=== PATIENT | female | born 1985 | race Caucasian/White ===

== ENCOUNTER 2018-06-02 15:37 | Inpatient (IN) ==
[2018-06-02] MEDS ORDERED: ZOFRAN IV PRN (15:54)
[2018-06-02] MEDS ORDERED: TYLENOL PO PRN (15:54)
[2018-06-02] MEDS ORDERED: DUONEB (A & A) INH PRN (16:00)
[2018-06-02] MEDS ORDERED: VANCOMYCIN IV PER PHARMACY MISC SCH (16:00)
[2018-06-02] MEDS: MAXIPIME 1 GM in NS 50 ML IV SCH (23:00)
[2018-06-02] MEDS: NORCO-7.5 PO PRN (23:01)
[2018-06-02] MEDS: NS 1,000 ML IV SCH (23:02)
[2018-06-02] MEDS: DUONEB (A & A) INH SCH (23:45)
[2018-06-03] MEDS: TESSALON PO PRN ×2 (00:55→22:00)
[2018-06-03] MEDS ORDERED: VANCOMYCIN 1 GM/NS 1 GM/250 ML IVPB IV ONE (01:00)
[2018-06-03 01:01] LABS: BASO# 0.02 X1000 (0.0-0.2); BASO% 0.2 % (0.0-0.8); EOS# 0.27 X1000 (0.0-0.7); EOS% 2.2 % (0.0-10.0); HEMATOCRIT 38.8 % (37.0-47.0); HEMOGLOBIN 13.2 g/dL (12.0-16.0); IMM GRAN# 0.03 X1000 (0.0-0.04); IMM GRAN% 0.2 % (0.0-0.5); LYMPH# 2.92 X1000 (1.2-3.4); LYMPH% 23.6 % (20.5-51.1); MCH 27.9 PG (27-31); MONO# 1.42 X1000 (0.11-0.59); MONO% 11.5 % (1.7-9.3); MPV 9.1 FL (7.4-10.4); NEUT% 62.3 % (42.2-75.2); PLT 398 X1000 (130-400); RBC 4.73 XMIL (4.2-5.4); RDW 13.3 % (11.5-14.5); WBC 12.36 X1000 (4.8-10.8)
[2018-06-03 01:44] LABS: AGAP 13; ALB/GLOB RATIO 1.1; ALBUMIN 4.6 g/dL (3.5-5.0); ALKALINE PHOSPHATASE 110 U/L (32-104); BUN 13 mg/dL (8-22); CALCIUM 9.7 mg/dL (8.8-10.2); CHLORIDE 101 mmol/L (98-107); COSMO 277; CREATININE 0.8 mg/dL (0.5-0.9); ESTIMATED GFR > 60; GLUCOSE 87 mg/dL (70-104); GOT 16 U/L (10-30); GPT 11 U/L (10-36); POTASSIUM 3.4 mmol/L (3.5-5.1); SODIUM 139 mmol/L (136-145); TCO2 25 mmol/L (25-35); TOTAL BILIRUBIN 0.28 mg/dL (0.20-1.00); TOTAL PROTEIN 8.8 g/dL (6.3-8.3)
[2018-06-03] MEDS ORDERED: VANCOMYCIN 800 MG in NS 250 ML IV ONE (03:00)
[2018-06-03] MEDS: DUONEB (A & A) INH SCH ×7 (03:48→22:30)
--- NOTE | 2018-06-03 07:54 | EKG Report ---
Test Performed on : 06/02/2018 11:19:37 PM Test Reason : PNA Blood Pressure : / mmHG Vent. Rate : 084 BPM Atrial Rate : 084 BPM P-R Int : 144 ms QRS Dur : 082 ms QT Int : 372 ms P-R-T Axes : 059 024 043 degrees QTc Int : 439 ms Normal sinus rhythm. with sinus arrhythmia. Normal ECG No previous ECGs available Confirmed by Junior FLORENTINO, Khanh Worley ([id number]) on 06/03/2018 8:46:48 AM
[2018-06-03 08:19] LABS: BASO# 0.01 X1000 (0.0-0.2); BASO% 0.1 % (0.0-0.8); EOS# 0.21 X1000 (0.0-0.7); EOS% 2.9 % (0.0-10.0); HEMATOCRIT 32.5 % (37.0-47.0); HEMOGLOBIN 10.9 g/dL (12.0-16.0); LYMPH# 1.84 X1000 (1.2-3.4); LYMPH% 25.6 % (20.5-51.1); MCH 27.7 PG (27-31); MCHC 33.5 g/dL (33-37); MCV 82.5 FL (81-99); MONO# 1.02 X1000 (0.11-0.59); MONO% 14.2 % (1.7-9.3); MPV 9.3 FL (7.4-10.4); NEUT# 4.11 X1000 (1.4-6.5); NEUT% 57.2 % (42.2-75.2); PLT 280 X1000 (130-400); RBC 3.94 XMIL (4.2-5.4); RDW 13.2 % (11.5-14.5); WBC 7.19 X1000 (4.8-10.8)
[2018-06-03] MEDS: PRILOSEC PO SCH (08:33)
[2018-06-03 08:34] LABS: AGAP 7; ALB/GLOB RATIO 1.1; ALBUMIN 3.3 g/dL (3.5-5.0); ALKALINE PHOSPHATASE 83 U/L (32-104); BUN 10 mg/dL (8-22); CALCIUM 8.5 mg/dL (8.8-10.2); CHLORIDE 108 mmol/L (98-107); COSMO 276; CREATININE 0.6 mg/dL (0.5-0.9); ESTIMATED GFR > 60; GLUCOSE 89 mg/dL (70-104); GOT 10 U/L (10-30); GPT 8 U/L (10-36); POTASSIUM 3.7 mmol/L (3.5-5.1); SODIUM 139 mmol/L (136-145); TCO2 24 mmol/L (25-35); TOTAL BILIRUBIN 0.21 mg/dL (0.20-1.00); TOTAL PROTEIN 6.4 g/dL (6.3-8.3)
--- NOTE | 2018-06-03 09:26 | Diag Imaging Result Doc PS360 ---
EXAM: CT THORAX W/CONTRAST INDICATION: Pulmonary Opacities per CT Abd/Pelvis,Fever,Cough TECHNIQUE: This exam was performed using automated exposure control, adjustment of mA or kV according to patient size, and/or use of iterative reconstruction technique. COMPARISON: CT of the abdomen and pelvis dated 06/02/2018. No prior dedicated CT chest is available for comparison. FINDINGS: There is a calcified granuloma in the superior aspect of the right lower lobe. The small airspace consolidation involving the left lower lobe that was seen on the previous recent abdominal CT is stable. There is a smaller slightly nodular ill-defined opacity in the right lower lobe near the base measuring up to 1.1 cm that is also stable. These are most compatible with a basilar pneumonia. No other airspace consolidations are identified. There is no pleural fluid collection and no pneumothorax. There are calcified right hilar lymph nodes indicating prior granulomatous disease. There are small shotty mediastinal lymph nodes and right hilar lymph nodes that are nonspecific. No discrete pulmonary artery filling defects are identified. There is no cardiomegaly. Limited views of the upper abdomen are unremarkable. IMPRESSION: Bibasilar opacities, more extensive on the left and most likely due to an infectious process, are stable. No other consolidations involving the remainder of the lungs are identified. Electronically signed by Froylan Perez 06/03/2018 9:24 AM
--- NOTE | 2018-06-03 10:29 | HISTORY AND PHYSICAL ---
INFECTIOUS DISEASE DOCTOR: DR. Freddy Hart DATE AND TIME: 06/02/2018 at 2330. CHIEF COMPLAINT: Productive cough, fever and chills. HISTORY OF PRESENT ILLNESS: Ms. Alonzo is a 32-year-old female who has no significant past medical history except for some chronic pain secondary to a pinched nerve in her back. She was admitted in late March 2018 and was diagnosed with a right pyelonephritis. Since that she time she has received 6 weeks of treatment with DR. Hart, receiving antibiotics of Levaquin. The patient states that she has been off the Levaquin antibiotic for approximately 2 weeks. She did follow up to have a routine CT abdomen and pelvis for reevaluation of her pyelonephritis. She did get a CT abdomen and pelvis with IV contrast performed this a.m. and the radiologist did note that there were some pulmonary opacities bilaterally which were not previously present, and that the possibility of pneumonia or even septic emboli should be considered. The patient is also reporting that she has been having fever, body aches and chills as well as a productive cough with green sputum for approximately 1 week. Other than this, she denies any headache , dizziness, chest pain, shortness of breath, abdominal pain, nausea, vomiting or diarrhea. She denies any dysuria or urinary frequency. She denies any pain in her extremities or swelling in her extremities. She does report that she has some mid upper chronic back pain, although this has not changed or worsened. She denies being around anyone recently with the flu or any of her children having the flu. The patient has also been complaining of a sore throat as well. DR. Hart did contact the hospitalist service for direct admission. Patient has been placed on the medical floor with telemetry. At this time the only lab results that we have available are a CBC in which her white blood cell count is slightly elevated at 12.36. Hemoglobin is 13.2, hematocrit 38.8. We will order blood culture and sputum culture and do plan to do a CT of the chest in the morning for further evaluation. REVIEW OF SYSTEMS: A 14-point review of systems was conducted with the patient and all were negative except for pertinent positives mentioned in the above HPI. PAST MEDICAL HISTORY: 1. Chronic pain secondary to a pinched nerve in her mid upper back. 2. Status post 6 weeks of treatment for pyelonephritis with Levaquin, followed by DR. Hart. 3. Herpes radialis. PAST SURGICAL HISTORY: 1. x3. 2. Tonsillectomy. 3. Cholecystectomy. 4. Bilateral ear surgery. SOCIAL HISTORY: The patient denies any tobacco, alcohol or illicit drug use. She does have 5 children who are alive and well and range in ages from 13 to 4. FAMILY HISTORY: Notable for diabetes, coronary artery disease and breast cancer. ALLERGIES: The patient has allergies to Zithromax and tramadol. HOME MEDICATIONS: The patient on her previous admission did take [place] 2 mg q.6 hours p.r.n. for pain as well as gabapentin 300 mg p.o. t.i.d. At this time her home medications for this admission have not been reconciled. Once they have done so, we will readjust her home medication list. DIAGNOSTIC DATA: White blood cell count is 12.36, hemoglobin 13.2, hematocrit 38.8, platelet count is 398,000. A CT abdomen and pelvis with IV contrast performed on 06/02/2018 did show in comparison to the previous study on 05/05/2018 that there were some patchy opacities in the left lower lobe and a nodular opacity in the posterior costophrenic sulcus at the right lower lobe which was not previously present. Possibility of pneumonia or septic emboli should be considered. As far as following up on the patient's pyelonephritis, they kidneys were noted to be without evidence of hydronephrosis or mass. At this time we are still awaiting several pending diagnostic studies which include CMP, magnesium, influenza screen, blood culture, sputum culture, strep and throat cultures as well as a CT thorax with contrast in the morning. We are also awaiting an EKG as well as an echocardiogram that are to be performed in the morning. PHYSICAL EXAMINATION: VITAL SIGNS: Temperature 98.6, heart rate 100, respirations 18, blood pressure 119/62 with a MAP of 58. Oxygen saturation is 97% on room air. GENERAL: Ms. Alonzo is a pleasant 32-year-old female. She was actually up moving around in the room without any distress. She was unpacking her overnight bag. She was awake, alert and able to answer all questions appropriately. HEENT: Head is atraumatic and normocephalic. Pupils are equal, round and reactive to light, are 3 mm bilaterally and brisk. Oral mucosa is moist. Her posterior pharynx does have some erythema as well as some drainage noted. Patient does also appear to have a possible ulcer noted to her left posterior tongue. NECK: Supple. Trachea midline. CARDIOVASCULAR: The patient has normal S1 and S2. No murmurs, gallops or rubs appreciated with regular rate and rhythm. PULMONARY: The patient has symmetrical chest expansion bilaterally, Lung sounds are clear to auscultation in bilateral upper moore, although she does have diminished lung sounds in bilateral bases. ABDOMEN: Soft, nontender, nondistended. Bowel sounds are present in all 4 quadrants. EXTREMITIES: No cyanosis, clubbing or edema noted. Pulse, motor and sensory are intact in all extremities. Pedal pulses and radial pulses are 2+ bilaterally. Capillary refill is less than 3. INTEGUMENTARY: The patient's skin is pink, warm and dry. NEUROLOGICAL: The patient is alert and oriented to person, place, time and situation. There were no focal neurological deficits noted. ASSESSMENT AND PLAN: 1. Pulmonary opacities. These were an incidental finding on a follow-up CT abdomen and pelvis that the patient was having performed for previously diagnosed pyelonephritis. The radiologist did note that she had pulmonary opacities bilaterally and the possibility of pneumonia and/or septic emboli could not be excluded. The patient has also been reporting fever, body aches and chills as well as productive cough with green sputum and a sore throat x1 week. For further evaluation of this we have ordered blood cultures, sputum culture, throat culture rapid strep and and influenza screen. We have placed her with antibiotic coverage with vancomycin and cefepime. Will do DuoNeb treatments q.4 hours, incentive spirometry. Encourage fluid intake, cough and deep breathing. We have ordered for her to have a CT thorax with contrast in the morning. We are having to wait until 8 o'clock in the morning because she had recent contrast within the last 24 hours. We have placed a consult with DR. Hart and will await his evaluation and further recommendations for management. Given that there is a possibility of septic emboli, we have ordered an echocardiogram as well. 2. Status post 6 weeks of treatment for pyelonephritis with Levaquin followed by DR. Hart. According to the most recent CT of the pelvis exam, the radiologist did not note any acute abnormalities. He put that the kidneys were without evidence of hydronephrosis or mass. The patient is not reporting any abdominal pain, flank pain or urinary symptoms. She is reporting some back pain in her mid upper back, although she reports this is her usual chronic back pain, and it is not new onset and has not worsened. 3. Chronic pain secondary to pinched nerve in her mid upper back. Will continue her regularly prescribed pain medicine. 4. Deep vein thrombosis prophylaxis will be provided with sequential compression devices. The patient has been placed on a medical floor with telemetry. She will have vital signs q.4 hours, strict intake and output. We are awaiting several diagnostic studies to be resulted at this time. We will continue to follow. Further orders and recommendations pending hospital course, diagnostic studies and physician evaluations. Dictated by VONDA Buckley for Thee Davis MD cc: Thee Davis MD MTDD
[2018-06-03] MEDS: MAXIPIME 1 GM in NS 50 ML IV SCH (12:14)
[2018-06-03] MEDS: NS 1,000 ML IV SCH (12:22)
--- NOTE | 2018-06-03 16:38 | PROGRESS NOTE ---
DATE: 06/03/2018 INTERVAL HISTORY: Ms. Alonzo was admitted overnight because of outpatient CAT scan suggestive of septic pulmonary emboli and for the need for intravenous antibiotics. She also had subjective fevers, chills, and weakness. SUBJECTIVE: Patient's mother is at bedside. Currently, patient is feeling better. She wanted to go home. I discussed with her that considering her condition I would recommend she be treated with intravenous antibiotics and she is in agreement with that. The patient denies any chest pain. She denies feeling short of breath. She is complaining off of soreness in her throat and odynophagia. She said her children were sick a week prior and since then she has acquired common cold and cough. Her flu screen was negative. I discussed with her about the physical examination findings and answered all of her questions. OBJECTIVE: Vital signs: Currently temperature 98 degrees, pulse 87, respiratory rate 18, blood pressure 93/52, saturating 98% on room air. General: Does not appear in any acute distress. HEENT: Oral cavity has mild tonsillar and soft palate inflammation suggestive of tonsillitis, postnasal drip. She also has a rhinitis. No cervical lymphadenopathy. Cardiovascular: S1, S2 normal. No murmur or gallop. Respiratory: Air entry bilaterally equal. No wheeze, rhonchi, crackles. Abdomen: Soft, nontender. No hepatosplenomegaly. Active bowel sounds. Extremities: No lower extremity edema. LABS: Suggestive of resolution of leukocytosis, normocytic anemia, normal platelet count, resolution of hypokalemia, hyperchloremia, and low bicarbonate. Normal kidney function. MICROBIOLOGY: Influenza screen was negative. Group A strep rapid antigen was negative. Blood cultures are in lab. Sputum culture is still in lab. Final results pending. IMAGING: Chest CT performed today morning suggestive of bibasilar opacities, more extensive on the left most likely due to infectious process. No consolidation in the remainder of the lungs. Echocardiogram is performed, results are pending. ASSESSMENT AND PLAN: 1. Sepsis due to bilateral patchy pneumonia, likely atypical. This could be viral pneumonia or could be pneumonia related to atypical organisms considering her symptoms and CT finding. Also on differential count she has monocytosis. Continue intravenous vancomycin, intravenous cefepime as per ID recommendation. Stop intravenous fluids as patient has been able to take by mouth. I will appreciate ID recommendation about need for atypical coverage. Follow up echocardiogram to rule out cardiac valve vegetations as the CT scan looks to have septic emboli, urine strep and urine legionella antigens. 2. History of acute pyelonephritis in March 2018 status post 6 weeks of levofloxacin. I will follow up with urinalysis to see if she has a lower urinary tract infection. Though she complained of some occasional lower back pain, this could be related to her chronic back pain. However, considering suspected septic emboli, I decided to get the urinalysis to find a possible source. 3. Acute pharyngitis and acute laryngitis. Could be viral in etiology. Flu screen and rapid strep antigen have been negative. I will treat it symptomatically with levocetirizine, ibuprofen, and Cepacol lozenges. 4. Chronic pain secondary to pinched nerve in mid upper back. Continue her home medications of [place]. I will start gabapentin in the future. 5. Deep vein thrombosis prophylaxis. SCDs. 6. Disposition. Patient remains inside the hospital for need for IV antibiotics pending further culture and sensitivity data. Plan of care was discussed with her and her mother at bedside. All of their questions have been answered. cc: Dre Nguyen MD MTDJulia
[2018-06-03 17:12] LABS: URINE SOURCE CLEAN CATCH
[2018-06-03 17:18] LABS: BILIRUBIN URINE NEGATIVE (NEGATIVE); BLOOD URINE NEGATIVE (NEGATIVE); COLOR STRAW; GLUCOSE URINE NEGATIVE (NEGATIVE); KETONE URINE NEGATIVE (NEGATIVE); LEUKOCYTES URINE NEGATIVE (NEGATIVE); NITRITE URINE NEGATIVE (NEGATIVE); PROTEIN URINE NEGATIVE (NEGATIVE); SP GRAVITY URINE 1.028; TURBIDITY URINE CLEAR (CLEAR); UROBILINOGEN URINE NORMAL (NORMAL)
[2018-06-03 17:22] LABS: UR EPITHELIAL CELLS <10 /HPF (<10); URINE BACTERIA NEGATIVE /HPF; URINE RBC <10 /HPF (<10); URINE WBC <10 /HPF (<10)
[2018-06-03] MEDS: MOTRIN PO SCH (18:04)
[2018-06-03] MEDS: MYCOSTATIN SUSP PO SCH ×2 (18:04→21:59)
[2018-06-03] MEDS: MAXIPIME 2 GM in NS 100 ML IV SCH (18:04)
--- NOTE | 2018-06-03 18:48 | INFECTIOUS DISEASE PROGRESS NO ---
DATE: 06/03/2018 PRESENT ILLNESS: Ms. Alonzo has been treated for a right-sided pyelonephritis with E coli, using Levaquin for a total of 6 weeks. She is admitted to the hospital due to a followup CT scan of her abdomen and pelvis which showed possible pneumonia or septic emboli. The patient was also having fevers, chills and green sputum at home. There is a pharyngitis with erythema and swelling noted to the bilateral tonsils. She also has an oral and possibly esophageal candidiasis. MEDICATIONS: We requested that she be started on vancomycin and cefepime. We have increased the cefepime to 2 g IV every 8 hours at this point. PHYSICAL EXAMINATION: Vital Signs: Temperature is 98, pulse rate 87, respiratory rate 18, blood pressure 93/52. O2 sat is 91% on room air. General: This is an acutely ill appearing female. She is sitting up in the bed currently in no acute distress. HEENT: Atraumatic , normocephalic. Oral mucous membranes are pink and moist. She does have some yellow exudate to the back of her tongue, as well as inflammation and erythema to the tonsils bilaterally. Conjunctivae are pink. Neck: Supple. Trachea is midline. Lungs: She does have some scattered rhonchi. Lung sounds are diminished bilaterally. She has a cough with occasional sputum. Cardiovascular: Heart rate and rhythm are regular. Normal sinus rhythm on the monitor. Pedal and radial pulses are palpable bilaterally. Abdomen: Soft, round and nontender. Bowel sounds are active. Neurologic: She is awake, alert and oriented. Able to ambulate without assistance. LABORATORY AND X-RAY: On admission, her white count was 12.36, today it is 7.19 ; hemoglobin 10.9; platelet count 280,000. Creatinine is 0.6. Estimated GFR is greater than 60. Total bilirubin 0.21, AST 10, ALT 8, alkaline phosphatase 83. Her flu swab was negative. Throat culture is pending. A group A strep rapid antigen was negative. Blood cultures are preliminary and sputum culture has shown Gram-positive cocci on the Gram stain. Yesterday, an abdomen and pelvis CT showed pulmonary opacities bilaterally and the possibility of pneumonia or septic emboli. Compared to the previous CT of the abdomen and pelvis done at the end of March there is no pyelonephritis, renal abscesses or hydronephrosis. CT scan of the chest done today showed calcified granuloma to the right lower lobe, nodular ill-defined opacity in the right lower lobe most likely indicative of basilar pneumonia, calcified right hilar lymph nodes indicating prior granulomatous disease. ASSESSMENT AND PLAN: Ms. Alonzo has completed treatment for her pyelonephritis and that situation seems to have resolved based on her CT scan done yesterday of the abdomen and pelvis. The patient was admitted last evening due to the possibility of pneumonia and/or septic emboli in the lower lobes, which was noted on that CT scan. Today she has had a CT scan of her chest with mention of some granulomas, as well as basilar pneumonia. The patient is not a smoker and states she never has been; however, she does have some secondhand smoke exposure. There also may be some abuse of pain medications at times. Right now, we will go ahead and order immunoglobulins as well as histoplasma antigen and antibody. We will also get a QuantiFERON. She is receiving vancomycin and cefepime, which we will continue. However, the dose of cefepime has increased to give her 2 g IV every 8 hours to cover for the possibility of Pseudomonas. We are awaiting the results of her blood and sputum cultures, and hopefully then we will be able to send her home with something by mouth. She is complaining of sore throat and burning in her tongue, so we will go ahead and give her Nystatin swish and swallow 4 times a day. These plans have been discussed with and recommended by Dr. Hart. COMORBIDITIES: For Ms. Alonzo include chronic pain with possible pain medication abuse and recent pyelonephritis. Dictated by VONDA Fox for Freddy Hart MD This chart was documented by, VONDA Fox and accurately reflects the services performed, treatment plan and medical decisions as attested by the providers signature Freddy Hart MD. cc: MD FERMÍN Watkins
[2018-06-03] MEDS: NORCO-7.5 PO PRN (21:59)
[2018-06-03] MEDS: VANCOMYCIN 1,400 MG in NS 250 ML IV SCH (22:23)
[2018-06-03] MEDS: CEPACOL SORE THROAT LOZENGE MT PRN (22:23)
[2018-06-04] MEDS: MOTRIN PO SCH ×4 (01:33→22:31)
[2018-06-04] MEDS: MAXIPIME 2 GM in NS 100 ML IV SCH ×3 (01:35→18:10)
[2018-06-04] MEDS: DUONEB (A & A) INH SCH ×6 (03:30→23:51)
[2018-06-04 07:10] LABS: BASO# 0.02 X1000 (0.0-0.2); BASO% 0.3 % (0.0-0.8); EOS# 0.09 X1000 (0.0-0.7); EOS% 1.4 % (0.0-10.0); HEMATOCRIT 34.9 % (37.0-47.0); HEMOGLOBIN 11.7 g/dL (12.0-16.0); IMM GRAN# 0.03 X1000 (0.0-0.04); IMM GRAN% 0.5 % (0.0-0.5); LYMPH# 1.37 X1000 (1.2-3.4); LYMPH% 20.9 % (20.5-51.1); MCH 27.6 PG (27-31); MCHC 33.5 g/dL (33-37); MCV 82.3 FL (81-99); MONO# 0.43 X1000 (0.11-0.59); MONO% 6.6 % (1.7-9.3); MPV 9.3 FL (7.4-10.4); NEUT# 4.62 X1000 (1.4-6.5); NEUT% 70.3 % (42.2-75.2); PLT 316 X1000 (130-400); RBC 4.24 XMIL (4.2-5.4); RDW 13.6 % (11.5-14.5); WBC 6.56 X1000 (4.8-10.8)
[2018-06-04 07:26] LABS: AGAP 10; BUN 6 mg/dL (8-22); CHLORIDE 112 mmol/L (98-107); COSMO 283; CREATININE 0.6 mg/dL (0.5-0.9); ESTIMATED GFR > 60; GLUCOSE 114 mg/dL (70-104); POTASSIUM 3.5 mmol/L (3.5-5.1); SODIUM 143 mmol/L (136-145); TCO2 21 mmol/L (25-35)
[2018-06-04] MEDS: MYCOSTATIN SUSP PO SCH ×4 (08:27→20:39)
[2018-06-04] MEDS: PRILOSEC PO SCH (08:27)
--- NOTE | 2018-06-04 09:46 | ECHO REPORT ---
ORDER DATE: 06/03/2018 MEASUREMENTS: Left ventricular end-diastolic 4.4, end-systolic diameter 2.3, septal thickness 0.7, aortic root 2.9, left atrium 4.1. SUMMARY: 1. Adequate quality study. 2. Aortic valve is without evidence of structural abnormality and opens adequately on 2- dimensional images. Peak gradient across the aortic valve is less than 10 mmHg. Mitral, tricuspid, and pulmonic valves are without evidence of structural abnormality. There is mild tricuspid regurgitation. The estimated systolic PA pressure by Doppler is 25 mmHg. The aortic root is normal in size. 3. Normal left ventricular chamber size and wall thickness demonstrated. Estimated left ventricular ejection fraction appears to be at least 65%. No regional wall motion abnormalities are evident. Left atrium is borderline enlarged. The right atrium and right ventricle are normal in size with grossly preserved right ventricular systolic function. 4. No pericardial effusion. 5. Appearance of inferior vena cava suggests normal central venous pressure. cc: Giorgi Gray MD
[2018-06-04] MEDS: VANCOMYCIN 1,400 MG in NS 250 ML IV SCH (15:59)
--- NOTE | 2018-06-04 16:57 | INFECTIOUS DISEASE PROGRESS NO ---
DATE: 06/04/2018 PRESENT ILLNESS: Ms. Alonzo is being treated for a gram-negative sarai pneumonia. She also has pharyngitis and oral and esophageal candidiasis. MEDICATIONS: She is receiving cefepime 2 g IV every 8 hours and vancomycin IV per Pharmacy dosing, as well as nystatin swish and swallow 4 times a day. PHYSICAL EXAMINATION: Vital Signs: Temperature is 99.2 degrees, pulse rate 89 , respiratory rate 20, blood pressure 104/62, O2 saturation is 99% on room air. General: This is an acutely ill- appearing young female. She is sitting up in bed, currently in no acute distress. HEENT: Atraumatic, normocephalic. Oral mucous membranes are pink and moist. There is some yellow exudate to the back of her tongue. She does have some complaints of burning to her tongue and pharyngitis. Conjunctivae are pink. Neck: Supple. Trachea is midline. Respiratory: Lung sounds are clear in the upper lobes. Diminished in the bases. Cardiovascular: Heart rate is regular. Radial and pedal pulses are +2 bilaterally. Abdomen: Soft, round, and nontender. Bowel sounds are active. Neurologic: She is awake, alert, oriented, and able to ambulate without assistance. DIAGNOSTIC STUDIES: Today her white count is 6.56, hemoglobin 11.7, platelet count 316,000. Creatinine is 0.6, estimated GFR is greater than 60. There is a gram-negative sarai growing in her sputum. Blood cultures are pending. No imaging reports today. Immunoglobulins show an IgA of 297, IgG 941. Her urine Legionella antigen was negative, and the urine Streptococcus pneumoniae antigen was also negative. ASSESSMENT AND PLAN: Ms. Alonzo is being treated for a gram-negative sarai pneumonia. She is feeling a lot better today. She does continue to have a low-grade temperature, although her leukocytosis has resolved. We are still waiting for some of her blood work to come back, as well as the final cultures on her blood and sputum. At this point, we will discontinue her vancomycin and continue cefepime as ordered for her pneumonia, and nystatin swish and swallow for her oral candidiasis. We will also get a chest x-ray in the morning, and hopefully she can be sent home tomorrow depending on the culture results. These plans have been discussed with and recommended by Dr. Hart. COMORBIDITIES: For Ms. [place] include chronic pain with possible pain medication abuse and recent pyelonephritis. Dictated by VONDA Fox for Freddy Hart MD This chart was documented by, VONDA Fox and accurately reflects the services performed, treatment plan and medical decisions as attested by the providers signature Freddy Hart MD. cc: Freddy Hart MD [facility]
[2018-06-04] MEDS: CEPACOL SORE THROAT LOZENGE MT PRN (20:37)
[2018-06-04] MEDS: TESSALON PO PRN (20:39)
[2018-06-04] MEDS: NORCO-7.5 PO PRN (20:40)
--- NOTE | 2018-06-04 21:57 | PROGRESS NOTE ---
DATE: 06/04/2018 INTERVAL HISTORY: Patient's sputum was growing gram-negative rods, final speciation is pending. Her vancomycin is stopped. SUBJECTIVE: Patient is feeling fine. Denies chest pain. Her cough is getting better. She thinks that is because of postnasal drip. She denies any shortness of breath. I discussed with her about antibiotic plan. I answered all of her questions. VITAL SIGNS: Currently, vitals: Temperature of 99.2, pulse 89, respirations 20 , blood pressure 104/62. Satting 99% on room air. PHYSICAL EXAMINATION: General: Does not appear in any acute distress. HEENT : Oral cavity has erythema affecting the soft palate, tonsil and posterior pharyngeal wall; however, tonsillar enlargement has significantly decreased. There is a postnasal drip. No cervical lymphadenopathy. She has rhinitis with boggy and inflamed nasal turbinate. Cardiovascular: S1, S2 normal. No murmur, rub or gallop. Respiratory: Air entry bilaterally equal. No wheezes, no crackles. Abdomen: Soft, nontender. No hepatosplenomegaly. Active bowel sounds. Extremities: No lower extremity edema. LABS: Suggestive of resolution of leukocytosis, stable hemoglobin, hematocrit and platelet count. Chloride of 112, bicarbonate 21. There is normal kidney function. Sputum culture is growing gram- negative rods. Blood culture has been negative. ASSESSMENT AND PLAN: 1. Sepsis due to bilateral patchy pneumonia due to gram-negative rods. Follow up final sputum culture and blood culture results. Continue intravenous cefepime as per ID recommendation. Echocardiogram performed did not detect any valvular vegetation with normal ejection fraction. Her urine strep and Legionella antigen have been negative. 2. History of acute pyelonephritis in March 2018, status post 6 weeks of levofloxacin with repeat urinalysis without any infection. 3. Acute pharyngitis and acute laryngitis, likely viral in etiology. Flu screen and rapid streptococcal antigen have been negative. Treat symptomatically with ibuprofen and Cepacol lozenges. Infectious Disease Team has also started her on nystatin suspension for suspected oral esophageal candidiasis. 4. Chronic pain secondary to pinched nerve in middle of back. Continue her home medications of [place]. 5. DVT prophylaxis with SCDs. 6. Disposition: Awaiting final sputum culture results which would guide antibiotic therapy. She is otherwise stable. If we have the sputum culture results tomorrow, after discussion with ID, we can think about discharging her home on p.o. antibiotics. Plan of care was discussed with her. All of her questions were answered. cc: Dre Nguyen MD MTDD
[2018-06-05] MEDS: MAXIPIME 2 GM in NS 100 ML IV SCH ×5 (01:58→18:07)
[2018-06-05] MEDS: DUONEB (A & A) INH SCH ×5 (05:36→15:51)
[2018-06-05 08:13] LABS: BASO# 0.02 X1000 (0.0-0.2); BASO% 0.4 % (0.0-0.8); EOS# 0.09 X1000 (0.0-0.7); EOS% 1.7 % (0.0-10.0); HEMATOCRIT 36.1 % (37.0-47.0); HEMOGLOBIN 12.1 g/dL (12.0-16.0); IMM GRAN# 0.04 X1000 (0.0-0.04); IMM GRAN% 0.8 % (0.0-0.5); LYMPH# 1.53 X1000 (1.2-3.4); LYMPH% 28.9 % (20.5-51.1); MCH 27.8 PG (27-31); MCHC 33.5 g/dL (33-37); MCV 82.8 FL (81-99); MONO# 0.41 X1000 (0.11-0.59); MONO% 7.7 % (1.7-9.3); MPV 9.3 FL (7.4-10.4); NEUT# 3.21 X1000 (1.4-6.5); NEUT% 60.5 % (42.2-75.2); PLT 351 X1000 (130-400); RBC 4.36 XMIL (4.2-5.4); RDW 13.9 % (11.5-14.5)
[2018-06-05 08:34] LABS: AGAP 13; BUN 9 mg/dL (8-22); CALCIUM 9.3 mg/dL (8.8-10.2); CHLORIDE 109 mmol/L (98-107); COSMO 284; CREATININE 0.7 mg/dL (0.5-0.9); ESTIMATED GFR > 60; GLUCOSE 107 mg/dL (70-104); POTASSIUM 3.7 mmol/L (3.5-5.1); SODIUM 143 mmol/L (136-145); TCO2 21 mmol/L (25-35)
--- NOTE | 2018-06-05 09:46 | Diag Imaging Result Doc PS360 ---
EXAM: CHEST-2 VIEWS 06/05/2018 HISTORY: pneumonia TECHNIQUE: PA and lateral chest COMMENT: There is no evidence of acute cardiac or pulmonary disease. Compared to the previous study of 04/04/2018 there has been no significant change in the appearance the chest considering differences in inspiration. IMPRESSION: No evidence of acute disease. Electronically signed by Kit Santana 06/05/2018 9:44 AM
[2018-06-05] MEDS: MOTRIN PO SCH ×2 (09:47→16:20)
[2018-06-05] MEDS: PRILOSEC PO SCH (09:48)
[2018-06-05] MEDS: MYCOSTATIN SUSP PO SCH ×5 (09:48→16:19)
[2018-06-05 13:24] VITALS: BP 120/63
--- NOTE | 2018-06-06 08:19 | DISCHARGE SUMMARY ---
ADMISSION DATE: 06/02/2018 DISCHARGE DATE: 06/05/2018 DISCHARGE DIAGNOSES: 1. Sepsis due to pneumonia due to gram-negative rods. 2. History of acute pyelonephritis in March 2018, status post 6 weeks of levofloxacin with repeat urinalysis without any infection. 3. Acute pharyngitis and acute laryngitis. 4. Chronic pain secondary to a pinched nerve in the middle of the back. HOSPITAL COURSE: A 32-year-old, female with a past medical history of chronic pain secondary to pinched nerve in her back, admitted in March 2018 due to right pyelonephritis, and she receive 6 weeks of treatment with antibiotics, where she receive Levaquin. As per the patient, she was off Levaquin for about 2 weeks. She did follow up with a repeat CT abdomen and pelvis for re-evaluation of her pyelonephritis. The day of admission on 06/02/2018 and the radiologist noted that there were some pulmonary opacities bilaterally which were not previously present, suspicious for pneumonia or even septic emboli should be considered. As per the patient, she has been having also fever, body aches and chills and productive cough with green sputum for about 1 week. She was admitted on 06/02/2018. She denies any headache, dizziness, chest pain, shortness of breath, abdominal pain, nausea, vomiting or diarrhea. No dysuria or frequency. Dr. Hart did contact the Hospitalist Service for direct admission. She was placed on the medical floor with telemetry. Sputum culture showed gram-negative rods, and she was placed on cefepime. The patient was improving on a daily basis. Echocardiogram was basically normal, x-ray today with no evidence of acute disease, so we have decided to discharge this patient with strict followup by his primary care doctor and Dr. Hart as needed. At the moment of discharge, the patient was in a stable medical condition, tolerating p.o. and ambulating. No chest pain. No shortness of breath. No cough. PHYSICAL EXAMINATION: Vital signs: Temperature 98.6 degrees, pulse 67, respiratory rate 18, blood pressure 120/63, oxygen saturation 100% on room air. HEENT: Head normocephalic. No trauma. PERRLA. Neck: Supple. No JVD. No masses. Central trachea. Chest: Clear to auscultation. No wheezing. No rales. Abdomen: Soft, nontender, nondistended. No hepatosplenomegaly. Extremities: No edema. No clubbing. No cyanosis. Neurological: The patient is alert and oriented x3. No focal deficits. LABORATORY DATA: WBC 5.3, hemoglobin 12.1, hematocrit 36.1, platelets 351,000. Sodium 143, potassium 3.7, chloride 109, bicarbonate 21, BUN 9, creatinine 0.7, glucose 107, calcium 9.3. DISCHARGE MEDICATIONS: 1. Tessalon 100 mg p.o. t.i.d. as needed for cough. 2. Omnicef 300 mg p.o. b.i.d. 3. [place] 7.5 p.o. q.6 hours as needed for pain. TIME SPENT: Discharging this patient, 35 minutes. cc: Solomon Boothe MD
== END 2018-06-05 18:50 | disposition home or self-care (01) | DRG 871 ==
LOC: SUATTDRO 15:37 → DIRADM 15:37 → 3N 22:22
PROVIDERS: ATTEND Internal Medicine
CPT/HCPCS: 71020; 71046; 71260; 80048; 80053; 81001; 81025; 82784; 83735; 85025; 86480; 86698; 87040; 87070; 87077; 87081; 87186; 87205; 87275; 87276; 87385; 87430; 87449; 87804; 87899; 93005; 93010; 93306; 93308; 94640; 94761; A9270; J0692; J3370; J7030; J7040; Q9967